=== PATIENT | female | born 1965 | race Caucasian/White ===

== ENCOUNTER 2020-01-16 14:47 | Emergency (ER) | payer OTHER, SELFPAY ==
[2020-01-16] MEDS ORDERED: Ibuprofen 200 MG TAB ONE (15:05)
--- NOTE | 2020-01-16 15:41 | RAD ---
LEFT HAND THREE VIEWS: 01/16/20 HISTORY: Injury, fall, left hand pain. FINDINGS/IMPRESSION: There are degenerative changes most prominent in the first carpometacarpal joint. No acute fracture o r dislocation is seen. POS: [facility]
== END 2020-01-16 16:15 | disposition home or self-care (01) ==
LOC: ERS 14:47
DX: M79.642 Pain in left hand (principal); S61.012A Laceration without foreign body of left thumb without damage to nail, initial encounter; F17.210 Nicotine dependence, cigarettes, uncomplicated; Z87.442 Personal history of urinary calculi; W18.09XA Striking against other object with subsequent fall, initial encounter